=== PATIENT | male | born 2000 | race Caucasian/White ===

== ENCOUNTER 2024-07-21 11:42 | Emergency (ER) | payer OTHER ==
[~2024-07-21] VITALS: Ht 175.3 cm; Wt 75.0 kg
[2024-07-21 12:14] VITALS: TEMP 98.1
[2024-07-21 12:25] LABS: COVID AG,FIA SOURCE NASAL SWAB
[2024-07-21 12:50] LABS: RAPID GROUP A STREP NEGATIVE (NEGATIVE)
[2024-07-21 12:53] LABS: INFLUENZA TYPE A NEGATIVE FOR TYPE A (NEGATIVE); INFLUENZA TYPE B NEGATIVE FOR TYPE B (NEGATIVE); SARS-COV2 (COVID) ANTIGEN,FIA Negative (Negative)
[2024-07-21] MEDS ORDERED: BENZ1LOZ50 PO (13:40)
[2024-07-21 14:15] VITALS: BP 122/70; PULSE 84; RESP 18; O2SAT 98
[2024-07-21] MEDS: DEXAMETHASONE 4 MG TABLET PO ONE (14:21)
== END 2024-07-21 14:48 | disposition home or self-care (01) ==
LOC: EMS 11:42
DX: J02.8 Acute pharyngitis due to other specified organisms (principal); B97.89 Other viral agents as the cause of diseases classified elsewhere; Z20.822 Contact with and (suspected) exposure to COVID-19
CPT/HCPCS: 99283; 87426; 86308; 87430; 87804; 36415; J8540